=== PATIENT | female | born 1985 | race Two or more races ===

== ENCOUNTER 2021-03-24 11:45 | Inpatient (IN) | payer OTHER ==
[~2021-03-24] VITALS: Ht 154.9 cm; Wt 58.1 kg
== END 2021-03-27 14:21 | disposition home or self-care (01) | DRG 747 ==
LOC: O/R 03-25 06:00 → OB/GYN 03-25 06:00
PROVIDERS: ADMIT Specialist; ATTEND Specialist
PROC: 07BC4ZZ Excision of Pelvis Lymphatic, Percutaneous Endoscopic Approach (ICD-10-PCS; 2021-03-25)
PROC: 0UTC4ZZ Resection of Cervix, Percutaneous Endoscopic Approach (ICD-10-PCS; principal; 2021-03-25 16:45)
DX: N72 Inflammatory disease of cervix uteri (principal); Z90.711 Acquired absence of uterus with remaining cervical stump